=== PATIENT | male | born 1945 | race Caucasian/White ===

== ENCOUNTER → 2017-01-05 | Outpatient (CLI) | payer MEDICARE, OTHER ==
[2017-01-05 19:06] LABS: Basophils % (A) 0 %; CHCM 33.3; Eosinophils # (A) 0.1 k/uL (0-0.7); Eosinophils % (A) 1 %; HCT 41.6 % (39.0-53.0); HDW 2.17; HGB 13.7 gm/dL (13.0-17.5); Luc % (Auto) 3; Lymphocytes # (A) 1.3 k/uL (1.0-4.8); Lymphocytes % (A) 17 %; MCH 33.7 pg (25.0-35.0); MCHC 32.9 g/dL (31.0-37.0); MCV 102.5 fL (80.0-100.0); Macrocytosis Slight; Mean Platelet Volume 7.2; Monocytes # (A) 0.5 k/uL (0-1.0); Monocytes % (A) 7 %; Neutrophils # (A) 5.8 k/uL (1.3-7.7); Neutrophils % (A) 73 %; Potassium 4.4 mmol/L (3.5-5.1); RBC 4.06 m/uL (4.30-5.90); RDW 12.8 % (11.5-15.5); WBC 7.9 k/uL (3.8-10.6)
[2017-01-05 19:50] LABS: Partial Thromboplastin Time 22.5 sec (22.0-30.0); Prothrombin Time 10.4 sec (9.0-12.0)
== END | disposition home or self-care (01) ==
LOC: MMGSC 11:43
PROVIDERS: ATTEND Family Medicine
DX: Z01.812 Encounter for preprocedural laboratory examination (principal)
CPT/HCPCS: 36415; 80051; 85025; 85610; 85730

== ENCOUNTER 2017-01-28 06:23 | Inpatient (IN) | payer MEDICARE, OTHER ==
[2017-01-26 09:02] VITALS: BMI 25.9
--- NOTE | 2017-01-27 10:00 | HP ---
CHIEF COMPLAINT: Left shoulder pain and weakness. HISTORY OF PRESENT ILLNESS: The patient is a 71-year-old right-hand dominant retired gentleman who presents with progressive left shoulder pain and weakness for the past several years. He underwent attempted rotator cuff repair in December 2015. He notes worsening limitation of strength and motion. PAST MEDICAL HISTORY: Significant for gout, hypertension, heart disease, hypercholesterolemia. PAST SURGICAL HISTORY: Significant for right ankle surgery, carpal tunnel release, left knee surgery, bilateral rotator cuff repair, left elbow surgery, cervical fusion and coronary artery bypass grafting. CURRENT MEDICATIONS: 1. Allopurinol. 2. Atorvastatin. 3. Gabapentin. 4. Hydrochlorothiazide. 5. Lisinopril. 6. Metoprolol. 7. Plavix. He notes allergies to LEVAQUIN, NEOMYCIN, and NORCO. FAMILY HISTORY: Significant for heart disease. SOCIAL HISTORY: Significant for social alcohol use in addition to previous tobacco use. Sixteen-point review of systems otherwise reviewed and is noncontributory. On examination, the patient is approximately 5 feet 4 inches, 152 pounds of mesomorphic habitus. HEENT exam is nonfocal. Neck is supple. On examination of his left shoulder, he does have some anterior deltoid atrophy; however, no warmth or erythema. He is tender about the subacromial space. He has moderate subacromial crepitus. Active range of motion. Forward elevation 150 degrees. External rotation with arm to side 50 degrees, internal rotation to T12. Passively, I am able to forward elevate him to 165 degrees. Motor strength is 4 minus out of 5 for external rotation. With arm to side, 3 over 5 for abduction. He does fire the deltoid. Jung, Neer and speed test are positive. His distal neurovascular exam otherwise appears to be intact in the left upper extremity. X-rays to include AP, axillary and outlet views show severe glenohumeral joint osteoarthrosis with diminished humeral head to acromial distance. IMPRESSION: Left shoulder rotator cuff arthropathy/severe glenohumeral joint osteoarthrosis. RECOMMENDATIONS: I talked to the patient at length regarding his treatment options. At this point, he opts to proceed with surgery. We will plan to proceed with left total reverse total shoulder arthroplasty. Risks and benefits were discussed at length in layman's terms. He underwent preoperative medical evaluation by Dr. 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 KAROL
[~2017-01-28 06:23] MED LIST: ACETAMINOPHEN TAB 500 MG TAB PO ONE; DEXAMETHASONE SOD PHOSPHATE 10 MG/ML 1 ML VIAL IV ONE; HYDROmorphone 1 MG/ML 1 ML SYRINGE IVP PRN; LIDOCAINE 1% 20 ML VIAL (10MG/ML) FOR IV START INTRADERMA PRN; MELOXICAM 7.5 MG TAB PO ONE; MIDAZOLAM 2 MG/2 ML VIAL IV PRN; ONDANSETRON 4 MG/2 ML VIAL IVP ONE; SCOPOLAMINE 1.5MG/72HR PATCH TRANSDERM ONE; TRANEXAMIC ACID 1,000 MG in SODIUM CHLORIDE 0.9% 100 ML IVPB ONE; ceFAZolin 2 GM in SODIUM CHLORIDE 0.9% 100 ML IVPB ONE
[2017-01-28] MEDS: LACTATED RINGERS 1,000 ML IV SCH (06:46)
[2017-01-28] MEDS ORDERED: PHENYLEPHRINE-0.9% NACL SYG 1 MG/10 ML SYRINGE ONE (07:28)
[2017-01-28] MEDS ORDERED: GLYCOPYRROLATE 0.2 MG/ML 2 ML VIAL ONE (07:28)
[2017-01-28] MEDS ORDERED: TRANEXAMIC ACID 1,000 MG/10 ML VIAL ONE (07:28)
[2017-01-28] MEDS ORDERED: fentaNYL (PF) 50 MCG/ML 2 ML AMP ONE (07:28)
[2017-01-28] MEDS ORDERED: NEOSTIGMINE 1 MG/ML 10 ML VIAL ONE (07:28)
[2017-01-28] MEDS ORDERED: LIDOCAINE 1% INJ 10MG/ML (20 ML MDV) ONE (07:28)
[2017-01-28] MEDS ORDERED: SODIUM CHLORIDE 0.9% 100 ML BAG ONE (07:28)
[2017-01-28] MEDS ORDERED: ePHEDrine 50 MG/ML 1 ML AMP ONE (07:28)
[2017-01-28] MEDS ORDERED: MIDAZOLAM 2 MG/2 ML VIAL ONE (07:28)
[2017-01-28] MEDS ORDERED: SUCCINYLCHOLINE CHLORIDE 100 MG/5 ML SYR IV ONE (07:28)
[2017-01-28] MEDS ORDERED: PROPOFOL 10 MG/ML 20 ML VIAL IV ONE (07:28)
[2017-01-28] MEDS ORDERED: ROCURONIUM BROMIDE 10 MG/ML 10 ML VIAL IV ONE (07:28)
[2017-01-28] MEDS ORDERED: ceFAZolin 3,000 MG in SODIUM CHLORIDE 0.9% IRRIGATIO 3,000 ML IRRIGATION ONE (07:28)
[2017-01-28] MEDS ORDERED: ONDANSETRON 4 MG/2 ML VIAL IVP PRN (09:35)
[2017-01-28] MEDS ORDERED: SENNOSIDES-DOCUSATE SODIUM 1 EACH TAB PO PRN (09:35)
[2017-01-28] MEDS ORDERED: ACETAMINOPHEN TAB 325 MG TAB PO PRN (09:43)
[2017-01-28] MEDS ORDERED: IV FLUID CONTINUATION 1,000 ML IV ONE (09:55)
--- NOTE | 2017-01-28 10:10 | XR ---
EXAMINATION TYPE: XR shoulder complete LT , ONE VIEW DATE OF EXAM ORDERED: 01/28/2017 HISTORY: post op evaluation. COMPARISON: None. FINDINGS: A left shoulder arthroplasty has been performed. Prosthetic elements appear in good positi on. IMPRESSION: STATUS POST LEFT SHOULDER ARTHROPLASTY.
[2017-01-28] MEDS ORDERED: HYDROcodone/APAP 5-325MG 1 EACH TAB PO PRN (13:57)
[2017-01-28] MEDS: traMADol 50 MG TAB PO SCH ×3 (14:24→23:16)
[2017-01-28] MEDS: ceFAZolin 2 GM in SODIUM CHLORIDE 0.9% 100 ML IVPB SCH (17:18)
[2017-01-28] MEDS ORDERED: ENOXAPARIN 40 MG/0.4 ML SYRINGE SQ ONE (18:00)
[2017-01-28] MEDS: HYDROcodone/APAP 5-325MG 1 EACH TAB PO PRN (19:58)
[2017-01-28] MEDS: METOPROLOL TARTRATE 25 MG TAB PO SCH (20:09)
[2017-01-28] MEDS: GABAPENTIN 300 MG CAP PO SCH (20:10)
[2017-01-28] MEDS: LISINOPRIL 20 MG TAB PO SCH (20:10)
--- NOTE | 2017-01-28 20:51 | P.CONS ---
History of Present Illness - Reason for Consult Consult date: 01/28/17 Medical management Requesting physician: Michael Godwin - Chief Complaint Left rotator shoulder arthroplasty - History of Present Illness This is a pleasant 71-year-old gentleman patient of Dr. Jacquelin Pimentel, he has underlying history of CAD previous CVA BPH obstructive sleep apnea hypertension hyperlipidemia admitted under service of Dr. Joaquin for left rotator cuff arthroplasty performed on 01/28/2017, patient was seen postoperatively without any complaints of chest pain shortness of breath difficulty breathing, vital signs are stable, Review of Systems Constitutional: Reports as per HPI, Denies anorexia, Denies chills, Denies chronic headaches, Denies chronic pain, Denies daytime sleepiness, Denies fatigue, Denies fever, Denies lethargy, Denies malaise, Denies night sweats, Denies poor appetite, Denies sweats, Denies weakness, Denies weight gain, Denies weight loss Ears, nose, mouth and throat: Reports as per HPI, Denies ant. neck pain, Denies bleeding gums, Denies dental pain, Denies dysphagia, Denies epistaxis, Denies headache, Denies hoarseness, Denies mouth pain, Denies nasal congestion, Denies nasal discharge, Denies neck fullness/pressure, Denies neck lump, Denies nose pain, Denies odynophagia, Denies post-nasal drip, Denies sinus pain, Denies sinus pressure, Denies swelling in mouth, Denies swelling in throat, Denies sore throat, Denies vertigo, Denies voice changes Cardiovascular: Reports as per HPI, Denies chest pain, Denies claudication, Denies decreased exercise tolerance, Denies dyspnea on exertion, Denies edema, Denies high blood pressure, Denies irregular heart beat, Denies leg edema, Denies lightheadedness, Denies orthopnea, Denies palpitations, Denies paroxysmal nocturnal dyspnea, Denies phlebitis, Denies rapid heart beat, Denies shortness of breath, Denies syncope Respiratory: Reports as per HPI, Denies congestion, Denies cough, Denies cough with sputum, Denies dyspnea, Denies excessive sputum, Denies hemoptysis, Denies home oxygen, Denies pain, Denies pain on inspiration, Denies pleurisy, Denies respiratory infections, Denies sleep apnea, Denies snoring, Denies wheezing Gastrointestinal: Reports as per HPI, Denies abdominal pain, Denies belching, Denies bloating, Denies BRBPR, Denies change in bowel habits, Denies coffee ground emesis, Denies constipation, Denies diarrhea, Denies dyspepsia, Denies early satiety, Denies excessive gas, Denies heartburn, Denies hematemesis, Denies hematochezia, Denies indigestion, Denies jaundice, Denies lactose intolerance, Denies loss of appetite, Denies melena, Denies nausea, Denies vomiting Genitourinary: Reports as per HPI Musculoskeletal: Reports as per HPI Integumentary: Reports as per HPI Neurological: Reports as per HPI, Denies aphasia, Denies ataxia, Denies balance difficulties, Denies burning pain, Denies change in mentation, Denies change in smell/taste, Denies change in speech, Denies confusion, Denies convulsions, Denies double vision, Denies gait dysfunction, Denies head injury, Denies headaches, Denies hearing difficulties, Denies lack of coordination, Denies loss of vision, Denies memory loss, Denies migraines, Denies motor disturbance, Denies numbness, Denies paralysis, Denies paresthesias, Denies seizures, Denies sensory deficit, Denies spasticity, Denies syncope, Denies tic, Denies tingling , Denies transient paralysis, Denies tremors, Denies vertigo, Denies weakness, Denies visual changes Psychiatric: Reports as per HPI Endocrine: Reports as per HPI Hematologic/Lymphatic: Reports as per HPI Allergic/Immunologic: Reports as per HPI Past Medical History Past Medical History: Coronary Artery Disease (CAD), Cancer, COPD, CVA/TIA, Hearing Disorder / Deafness, Hyperlipidemia, Hypertension, Neurologic Disorder, Osteoarthritis (OA), Prostate Disorder, Sleep Apnea/CPAP/BIPAP Additional Past Medical History / Comment(s): Skin cancer- hand, C PAP MACHINE History of Any Multi-Drug Resistant Organisms: None Reported Past Surgical History: Back Surgery, Coronary Bypass/CABG, Heart Catheterization , Hernia Repair, Joint Replacement, Orthopedic Surgery Additional Past Surgical History / Comment(s): Bilat. cataract, cervical fusion , R total ankle, L & R rotator cuff, Bilat. carpal tunnel, RIGHT AND LEFT ELBOW , LESION RIGHT HAND, RIGHT KNEE ARTHROSCOPIC, Left total shoulder reversal Past Anesthesia/Blood Transfusion Reactions: No Reported Reaction Past Psychological History: Depression Additional Psychological History / Comment(s): Hx. of depression 2 yrs. ago. Smoking Status: Former smoker - Past Family History Mother Family Medical History: No Reported History Brother(s) Family Medical History: Cancer Additional Family Medical History / Comment(s): Unknown Sister(s) Family Medical History: Cancer Additional Family Medical History / Comment(s): Unknown Medications and Allergies Home Medications Medication Instructions Recorded Confirmed Type Atorvastatin [Lipitor] 20 mg PO HS 01/19/16 01/28/17 History Clopidogrel [Plavix] 75 mg PO DAILY 01/19/16 01/28/17 History Cyclobenzaprine [Flexeril] 10 mg PO HS 01/19/16 01/28/17 History Gabapentin [Neurontin] 300 mg PO BID 01/19/16 01/28/17 History Hydrochlorothiazide 25 mg PO DAILY 01/19/16 01/28/17 History Lisinopril [Prinivil] 20 mg PO HS 01/19/16 01/28/17 History Metoprolol Tartrate [Lopressor] 25 mg PO BID 01/19/16 01/28/17 History Multivitamin [Men's Multi-Vitamin] 1 tab PO DAILY 01/19/16 01/28/17 History Allopurinol [Zyloprim] 100 mg PO DAILY 01/20/17 01/28/17 History Allergies Allergy/AdvReac Type Severity Reaction Status Date / Time hydrocodone bitartrate Allergy Rash/Hives Verified 01/26/17 08:17 [From [place]] indomethacin Allergy CHANGE IN Verified 01/26/17 08:17 KIDNEY FUNCTION TEST levofloxacin [From Levaquin] Allergy PROBLEM Verified 01/26/17 08:17 WITH TENDON neomycin Allergy Rash/Hives Verified 01/26/17 08:17 Opioids - Morphine Analogues Allergy Rash/Hives Verified 01/26/17 08:17 Physical Exam Vitals: Vital Signs Temp Pulse Resp BP Pulse Ox 01/28/17 17:33 103 H 18 120/67 95 01/28/17 13:00 82 98/70 98 01/28/17 12:45 73 109/54 98 01/28/17 12:30 80 111/70 98 01/28/17 12:15 60 98/47 98 01/28/17 12:00 47 L 96/45 98 01/28/17 11:45 63 114/57 98 01/28/17 11:30 57 L 106/51 98 01/28/17 11:15 97.4 F L 56 L 16 102/40 95 01/28/17 10:50 54 L 16 107/55 95 01/28/17 10:35 53 L 16 101/51 96 01/28/17 10:20 54 L 16 124/58 97 01/28/17 09:50 96.8 F L 74 14 135/63 95 01/28/17 06:32 98.1 F 61 16 145/68 96 Intake and Output 01/28/17 01/28/17 01/28/17 06:59 14:59 22:59 Intake Total 200 1122 Output Total 400 Balance 200 722 Intake: IV 200 901 Intake, IV Titration 221 Amount Lactated Ringers 1,000 ml 221 @ 40 mls/hr IV .Q24H [facility] Rx#:[id number] Output: Urine 200 Estimated Blood Loss 200 Other: Voiding Method Indwelling Catheter Weight 70.76 kg Patient Weight 01/29/17 06:59 Weight 70.76 kg - Constitutional General appearance: average body habitus, cooperative, no acute distress - EENT Eyes: anicteric sclerae, EOMI, PERRLA, dentition normal, normal appearance ENT: NA/AT, normal oropharynx - Neck Neck: no lymphadenopathy, normal ROM, no other, no rigidity, no stridor, no thyromegaly - Respiratory Respiratory: bilateral: CTA, negative: diminished, dullness, rales - Cardiovascular Rhythm: regular Heart sounds: normal: S1, S2 Abnormal Heart Sounds: no systolic murmur, no diastolic murmur, no rub, no S3 Gallop, no S4 Gallop, no click, no other - Gastrointestinal General gastrointestinal: soft - Neurologic Neurologic: CNII-XII intact - Musculoskeletal Musculoskeletal: gait normal, strength equal bilaterally - Psychiatric Psychiatric: A&O x's 3, appropriate affect, intact judgment & insight Assessment and Plan Plan: 1. left total reversed shoulder arthroplasty was performed performed 01/28/2017 , patient is medically stable at this point, neurovascular examination is intact , patient would continue on incentive spirometry, opioids for pain control, patient is to receive muscle relaxants as well and DVT prophylaxis, patient patient can't have aspirin 81 mg twice a day while on Plavix 2. Known history of CAD patient currently is on Plavix, metoprolol and Zestril as well as Lipitor, Hytrin and Dyazide can be instituted once vitals have been stabilized as well as adequate hydration perceived 3.. History of gout currently asymptomatic on maintenance Zyloprim 4.. History of neuropathy on gabapentin 200 mg twice a day 5. COPD without any exacerbation patient may have albuterol on a when necessary basis 6. obstructive sleep apnea has CPAP machine 7. BPH without any lower tract symptomatology Thank you Dr. Godwin in allowing us to participate in the care of your patient. Going to follow him with you during this current hospitalization with recommendations to his care based on his clinical progress
[2017-01-28] MEDS ORDERED: ATORVASTATIN 20 MG TAB PO SCH (21:00)
[2017-01-28] MEDS ORDERED: CYCLOBENZAPRINE 10 MG TAB PO SCH (21:00)
[2017-01-28] MEDS: ALLOPURINOL 100 MG TAB PO SCH (22:28)
[2017-01-29] MEDS: ceFAZolin 2 GM in SODIUM CHLORIDE 0.9% 100 ML IVPB SCH (00:09)
[2017-01-29 07:11] LABS: Basophils % (A) 0 %; CH 33.3; CHCM 33.1; Eosinophils % (A) 1 %; HDW 2.14; HGB 12.2 gm/dL (13.0-17.5); Luc # (Auto) 0.15; Luc % (Auto) 2; Lymphocytes # (A) 1.3 k/uL (1.0-4.8); Lymphocytes % (A) 20 %; MCH 34.2 pg (25.0-35.0); MCHC 33.8 g/dL (31.0-37.0); MCV 101.1 fL (80.0-100.0); Mean Platelet Volume 6.5; Monocytes # (A) 0.5 k/uL (0-1.0); Monocytes % (A) 7 %; Neutrophils # (A) 4.5 k/uL (1.3-7.7); Neutrophils % (A) 70 %; RBC 3.56 m/uL (4.30-5.90); RDW 12.8 % (11.5-15.5); WBC 6.5 k/uL (3.8-10.6); WBC (Perox) 6.68
[2017-01-29] MEDS: LACTATED RINGERS 1,000 ML IV SCH (07:37)
[2017-01-29] MEDS: traMADol 50 MG TAB PO SCH (07:39)
[2017-01-29] MEDS: HYDROcodone/APAP 5-325MG 1 EACH TAB PO PRN (07:39)
[2017-01-29] MEDS: ALLOPURINOL 100 MG TAB PO SCH (07:44)
[2017-01-29] MEDS: GABAPENTIN 300 MG CAP PO SCH (07:44)
[2017-01-29 07:51] VITALS: RESP 16
[2017-01-29] MEDS: LISINOPRIL 20 MG TAB PO SCH (07:51)
[2017-01-29] MEDS: METOPROLOL TARTRATE 25 MG TAB PO SCH (07:52)
[2017-01-29 08:03] VITALS: BP 146/67; PULSE 74; TEMP 98.6
[2017-01-29] MEDS ORDERED: ALLOPURINOL 100 MG TAB PO SCH (09:00)
[2017-01-29] MEDS ORDERED: ASPIRIN 81 MG CHEW PO SCH (09:00)
[2017-01-29] MEDS ORDERED: HYDROCHLOROTHIAZIDE 25 MG TAB PO SCH (09:00)
[2017-01-29] MEDS ORDERED: CLOPIDOGREL 75 MG TAB PO SCH (09:00)
--- NOTE | 2017-01-29 10:51 | P.PN ---
Subjective Principal diagnosis: status post reverse left total shoulder arthroplasty Patient is seen today resting in his hospital bed, this was present at bedside. Patient doing very well at this point. His pain is well-controlled. He denies any chest pain, lightheadedness, shortness of breath, fever chills. Objective - Vital Signs Vital signs: Vital Signs Temp 98.6 F 01/29/17 08:02 Pulse 74 01/29/17 08:02 Resp 16 01/29/17 08:02 BP 146/67 01/29/17 08:02 Pulse Ox 94 L 01/29/17 08:02 Intake & Output 01/28/17 01/29/17 01/29/17 18:59 06:59 18:59 Intake Total 1122 340 Output Total 400 1400 300 Balance 722 -1060 -300 Weight 70.76 kg 70.76 kg Intake: IV 901 240 Lactated Ringers 1,000 ml 240 @ 40 mls/hr IV .Q24H [facility] Rx#:[id number] Intake, IV Titration 221 100 Amount Lactated Ringers 1,000 ml 221 @ 40 mls/hr IV .Q24H [facility] Rx#:[id number] ceFAZolin 2 gm In Sodium 100 Chloride 0.9% 100 ml @ 100 mls/hr IVPB Q8HR [facility] Rx#:[id number] Output: Urine 200 1400 300 Uretheral ([place]) 300 Estimated Blood Loss 200 Other: Voiding Method Indwelling Catheter Indwelling Catheter - Exam Left upper extremity: Initial postoperative bandage was removed, the incisions clean, dry and intact. Minimal soft tissue swelling present at this time surrounding the shoulder. Range of motion at the shoulder is limited, he is able to extend and flex along with pronate and supinate the wrist and forearm. He is able to wiggle all the fingers. His sensation to light touch throughout the left upper extremity is intact. His radial pulses 2+. - Labs CBC & Chem 7: 01/29/17 06:51 Labs: Abnormal Lab Results - Last 24 Hours (Table) 01/29/17 Range/Units 06:51 RBC 3.56 L (4.30-5.90) m/uL Hgb 12.2 L (13.0-17.5) gm/dL Hct 36.0 L (39.0-53.0) % MCV 101.1 H (80.0-100.0) fL Assessment and Plan Plan: Assessment: 1. Postop day #1 status post reverse left total shoulder arthroplasty Plan: 1. Pain control, patient will be discharged home on oral medication 2. Wound instructions were discussed 3. Utilize arm sling 4. GI and DVT prophylaxis, will resume his home dose of Plavix, we'll also take 81 mg aspirin twice a day for 2 weeks 5. Medical recommendations 6. Discharge planning: Patient will be discharged home today Time with Patient: Less than 30
--- NOTE | 2017-01-29 10:59 | P.DS ---
Providers Date of admission: 01/28/17 06:23 Expected date of discharge: 01/29/17 Attending physician: Michael Godwin Consults: 01/28/17 12:52 Consult Physician Stat Consulting Provider: Christelle Ruvalcaba Consult Reason/Comments: medical managment Do you want consulting provider notified?: Yes Primary care physician: [facility] Course: Date of admission: 01/28/2017 Date of discharge: 01/29/2017 Admission diagnosis: Status post left reverse total shoulder arthroplasty Discharge diagnosis: Same Attending physician: Dr. Godwin Surgical procedures: Reverse left total shoulder arthroplasty Brief history: Patient is a 71-year-old male with a history of progressive primary left shoulder osteoarthritis. At this point patient has failed conservative treatment measures and has opted to proceed with a elective left total shoulder arthroplasty. Hospital course: Details of patient's surgery can be found in operative report. Patient tolerated the procedure well and was subsequently transported to orthopedic floor. Patient's orthopeidc and medical care was provided daily. Patient had daily laboratory tests performed for evaluation of overall blood counts. Patient had daily physical therapy to include strengthening range of motion as well as education with walker ambulation. Patient was treated with aspirin and Plavix for their postoperative DVT prophylaxis during their inpatient stay. Patient was noted to have a relatively uneventful postoperative course. Patient reported satisfactory pain control with oral pain medications by postoperative day 0. Patient showed satisfactory progress with physical therapy. Patient moved steadily through the program and had no difficulty meeting the goals by postoperative day 1. Given patient's otherwise satisfactory course and having met physical therapy goals, plan is to discharge patient home on postoperative day 1. Discharge condition/disposition: Patient will be discharged home in stable condition. Discharge medications: Instructions are given on resumption of patient's normal daily medications per primary care recommendation, in addition patient will be prescribed [place] 5 mg/325 mg, Colace 100 mg, aspirin 81 mg. Discharge instructions: 1. Wound care and infection precautions, keep incision dry and covered while showering, no lotions, creams, moisturizers. No soaking, tubs, pools, hottubs. Do not scrub over the incision. 2. Utilize pendular exercises, utilize arm sling 3. Ice and elevate when necessary. Do not exceed 20 minutes per hour with ice pack. 4. Utilize compression sleeve until seen at first follow up appointment. 5. Pain meds and anticoagulants per prescription. 6. Pain medication has potential to cause constipation. Increase oral fluid and fiber intake. Contact primary care provider if you have not had a bowel movement within 48 hours after discharge 7. No anti-inflammatory medication until discussed at first post operative visit, this including Motrin, Aleve, Mobic, Diclofenac. 8. Follow up in office at 2 weeks postop with Jim Arteaga PA-C 9. Follow up with your primary care doctor 7-10 days after discharge. 10. Contact [facility] with any questions, Procedures: Reverse left total shoulder arthroplasty Patient Condition at Discharge: Good Plan - Discharge Summary New Discharge Prescriptions: New Docusate [Colace] 100 mg PO DAILY #30 capsule Hydrocodone/Acetaminophen [[place] 5-325] 1 - 2 each PO Q6HR PRN #40 tab PRN Reason: Pain Aspirin [Adult Low Dose Aspirin EC] 81 mg PO BID #[address] tablet[address] Vika Hua Multivitamin [Men's Multi-Vitamin] 1 tab PO DAILY Clopidogrel [Plavix] 75 mg PO DAILY Metoprolol Tartrate [Lopressor] 25 mg PO BID Lisinopril [Prinivil] 20 mg PO HS Hydrochlorothiazide 25 mg PO DAILY Gabapentin [Neurontin] 300 mg PO BID Cyclobenzaprine [Flexeril] 10 mg PO HS Atorvastatin [Lipitor] 20 mg PO HS Allopurinol [Zyloprim] 100 mg PO DAILY Discharge Medication List Atorvastatin [Lipitor] 20 mg PO HS 01/19/16 [History] Clopidogrel [Plavix] 75 mg PO DAILY 01/19/16 [History] Cyclobenzaprine [Flexeril] 10 mg PO HS 01/19/16 [History] Gabapentin [Neurontin] 300 mg PO BID 01/19/16 [History] Hydrochlorothiazide 25 mg PO DAILY 01/19/16 [History] Lisinopril [Prinivil] 20 mg PO HS 01/19/16 [History] Metoprolol Tartrate [Lopressor] 25 mg PO BID 01/19/16 [History] Multivitamin [Men's Multi-Vitamin] 1 tab PO DAILY 01/19/16 [History] Allopurinol [Zyloprim] 100 mg PO DAILY 01/20/17 [History] Aspirin [Adult Low Dose Aspirin EC] 81 mg PO BID #30 tablet. 01/29/17 [Rx] Docusate [Colace] 100 mg PO DAILY #30 capsule 01/29/17 [Rx] Hydrocodone/Acetaminophen [[place] 5-325] 1 - 2 each PO Q6HR PRN #40 tab 01/29/17 [Rx] Follow up Appointment(s)/Referral(s): Michael Arteaga PAC [PHYSICIAN [employer] ROOM OPERATOR] - 2 Weeks Activity/Diet/Wound Care/Special Instructions: Orthopedic Discharge Instructions: 1. Wound care and infection precautions, keep incision dry and covered while showering, no lotions, creams, moisturizers. No soaking, pools, hot tubs. Do not scrub over incision. 2. Utilize pendular exercises, utilize arm sling 3. Ice and elevate when necessary. Do not exceed 20 minutes per hour with ice pack. 4. Utilize compression sleeve until seen at first follow up appointment. 5. Pain meds and anticoagulants per prescription. 6. Pain medication has potential to cause constipation. Increase oral fluid and fiber intake. Contact primary care provider if you have not had a bowel movement within 48 hours after discharge. 7. No anti-inflammatory medication until discussed at first post operative visit, this including Motrin, Aleve, Mobic, Diclofenac. 8. Follow up in office at 2 weeks postop with Jim Arteaga PA-C 9. Follow up with your primary care doctor 7-10 days after discharge. 10. Contact [facility] with any questions, . Discharge Disposition: HOME SELF-CARE
[2017-01-29] MEDS ORDERED: MULTIVITAMINS, THERA 1 EACH TAB PO SCH (12:00)
--- NOTE | 2017-01-29 12:34 | P.PN ---
Subjective Principal diagnosis: This is a pleasant 71-year-old gentleman patient of Dr. Jacquelin Pimentel, he has underlying history of CAD previous CVA BPH obstructive sleep apnea hypertension hyperlipidemia admitted under service of Dr. Joaquin for left rotator cuff arthroplasty performed on 01/28/2017, patient was seen postoperatively without any complaints of chest pain shortness of breath difficulty breathing, vital signs are stable. 01/29: Today the patient was evaluated status post reversal of left total shoulder arthroplasty. Patient doing well reports pain is well controlled. He denies any shortness of breath or chest pain. Will continue to monitor for any postop complications Objective - Vital Signs Vital signs: Vital Signs Temp 98.6 F 01/29/17 08:02 Pulse 74 01/29/17 08:02 Resp 16 01/29/17 08:02 BP 146/67 01/29/17 08:02 Pulse Ox 94 L 01/29/17 08:02 Intake & Output 01/28/17 01/29/17 01/29/17 18:59 06:59 18:59 Intake Total 1122 340 Output Total 400 1400 300 Balance 722 -1060 -300 Weight 70.76 kg 70.76 kg Intake: IV 901 240 Lactated Ringers 1,000 ml 240 @ 40 mls/hr IV .Q24H [facility] Rx#:[id number] Intake, IV Titration 221 100 Amount Lactated Ringers 1,000 ml 221 @ 40 mls/hr IV .Q24H [facility] Rx#:[id number] ceFAZolin 2 gm In Sodium 100 Chloride 0.9% 100 ml @ 100 mls/hr IVPB Q8HR [facility] Rx#:[id number] Output: Urine 200 1400 300 Uretheral ([place]) 300 Estimated Blood Loss 200 Other: Voiding Method Indwelling Catheter Indwelling Catheter Indwelling Catheter - Exam - Constitutional General appearance: average body habitus, cooperative, no acute distress - EENT Eyes: anicteric sclerae, EOMI, PERRLA, dentition normal, normal appearance ENT: NA/AT, normal oropharynx - Neck Neck: no lymphadenopathy, normal ROM, no other, no rigidity, no stridor, no thyromegaly - Respiratory Respiratory: bilateral: CTA, negative: diminished, dullness, rales - Cardiovascular Rhythm: regular Heart sounds: normal: S1, S2 Abnormal Heart Sounds: no systolic murmur, no diastolic murmur, no rub, no S3 Gallop, no S4 Gallop, no click, no other - Gastrointestinal General gastrointestinal: soft - Neurologic Neurologic: CNII-XII intact - Musculoskeletal Musculoskeletal: gait normal, strength equal bilaterally - Psychiatric Psychiatric: A&O x's 3, appropriate affect, intact judgment & insight - Labs CBC & Chem 7: 01/29/17 06:51 Labs: Abnormal Lab Results - Last 24 Hours (Table) 01/29/17 Range/Units 06:51 RBC 3.56 L (4.30-5.90) m/uL Hgb 12.2 L (13.0-17.5) gm/dL Hct 36.0 L (39.0-53.0) % MCV 101.1 H (80.0-100.0) fL Assessment and Plan Plan: Plan: 1. left total reversed shoulder arthroplasty was performed performed 01/28/2017 , patient is medically stable at this point, neurovascular examination is intact , patient would continue on incentive spirometry, opioids for pain control, patient is to receive muscle relaxants as well and DVT prophylaxis, patient patient can't have aspirin 81 mg twice a day while on Plavix 2. Known history of CAD patient currently is on Plavix, metoprolol and Zestril as well as Lipitor, Hytrin and Dyazide can be instituted once vitals have been stabilized as well as adequate hydration perceived 3.. History of gout currently asymptomatic on maintenance Zyloprim 4.. History of neuropathy on gabapentin 200 mg twice a day 5. COPD without any exacerbation patient may have albuterol on a when necessary basis 6. obstructive sleep apnea has CPAP machine 7. BPH without any lower tract symptoms The above impression and plan of care have been discussed and directed by signing physician. Kathe Rogers nurse practitioner acting as scribe for signing physician.
--- NOTE | 2017-02-07 11:57 | OP ---
DATE OF PROCEDURE: 01/28/2017 SURGEON: Michael Godwin MD AUDIO/VISUAL OPERATOR: Michael Arteaga PREOPERATIVE DIAGNOSIS: Severe left glenohumeral joint osteoarthrosis/rotator cuff arthropathy. POSTOPERATIVE DIAGNOSIS: Severe left glenohumeral joint osteoarthrosis/rotator cuff arthropathy. PROCEDURE: Left reversed total shoulder arthroplasty. ANESTHESIA: General. PREP: DuraPrep. INDICATIONS FOR PROCEDURE: The patient is a 71-year-old male who presents with progressive left shoulder pain, weakness, and limited motion secondary to rotator cuff arthropathy despite conservative measures. He had previously undergone attempted rotator cuff repair. A discussion of the risks and benefits of operative intervention versus continued conservative measures was made with the patient. He opts to proceed. Operative risks to include infection, neurovascular injury, development of blood clots, possible dislocation, possible fracture and possible need for subsequent procedures were discussed. Informed consent was obtained. PROCEDURE: The patient was brought to the operating room and after induction of general anesthesia, he was placed into a beach chair position. The bone prominences were appropriately padded. The left upper extremity was prepped and draped in a normal fashion. A deltopectoral incision was then made just lateral to the coracoid process extending approximately 12 cm. The skin and subcutaneous tissues were divided sharply. Electrocautery was used for hemostasis. The deltopectoral interval was identified and cephalic vein was gently retracted laterally with deltoid. Subdeltoid adhesions were bluntly dissected. A portion of the upper pectoralis was released to facility exposure. A self-retaining retractor was placed. The clavipectoral fascia was opened and the conjoined tendon gently retracted medially. The biceps was identified and released and allowed to retract distally. The rotator cuff was torn and retracted past the level of the glenoid. A portion of the subscapularis tendon was intact and that was released from a lesser tuberosity with electrocautery intact. The head was then gently dislocated. A canal finder was used to find the humeral canal. Sequential canal reaming was performed by hand up to a size 10. There was good distal fit and chatter. The cutting guide was then placed. I planned on 10 degrees of retroversion. The humeral head cut was then made exiting at the level of a rotator cuff insertion. The head was then removed. The remaining inferior osteophytes were removed. Attention was then paid towards the glenoid. Appropriate retractors were placed. The labrum was released from the 6 o'clock to 12 o'clock position. Additional soft tissue releases were performed to gain full exposure. A guide pin was then placed into the inferior portion of the glenoid. The glenoid was then reamed down to a bleeding bony surface. Peripheral osteophytes were removed with a tile molder hand. The central peg hole was then drilled. The Glenosphere baseplate was then gently impacted. The inferior and superior screw holes were filled first with locking screw to the appropriate length. The anterior and posterior screws were then placed. Good purchase was obtained. A 38 mm Glenosphere was gently impacted. This was then tightened down. Attention was then paid towards preparing the proximal humerus. The appropriate broach was inserted in 10 degrees of retroversion and was fully seated. The size 1 epiphyseal reamer was utilized. The trial size 10 humeral stem with a size 1 epiphysis was then placed. A 38 mm plus 6 articular surface was placed. The shoulder was gently reduced. It was taken through range of motion. I felt there was adequate voodoo of soft tissue tension judging off the conjoined tendon tension. There was good stability and flexion and extension with internal external rotation. The shoulder was gently dislocated. The trial components were then removed. The final humeral stem was inserted again in 10 degrees of retroversion and it was seated. There was good rotational stability. The 38 mm plus 6 articular surface was placed and was gently impacted. The shoulder was gently reduced. Again, it was taken through range of motion and felt to be stable in flexion and extension with internal and external rotation. Again, there was good soft tissue tension judging off the conjoined tendon. Pulsatile lavage was utilized. I did repair the subscapularis with #2 Ethibond suture. The deltopectoral interval was closed with interrupted 2-0 Vicryl sutures. The subcutaneous tissues were reapproximated with interrupted 2-0 Vicryl sutures. The skin was reapproximated with 3-0 subcuticular Stratafix suture. Skin tape and adhesive was applied. A sterile dressing was applied in addition to a sling. The patient was then awoken from general anesthesia and transferred to the recovery room in good condition. Blood loss was estimated at 150 mL. No complications were incurred. Sponge and needle counts were correct at the end of the case. The implants used Depuy size 10 humeral stem, size 1 epiphysis, 38 mm plus 6 articular surface, 38 mm Glenosphere. This was a delta Xtend implant. [facility]
== END 2017-01-29 14:55 | disposition home or self-care (01) | DRG 483 ==
LOC: 2ORMAIN 06:23 → 5MS5E 09:50
PROVIDERS: ADMIT Orthopaedic Surgery; ATTEND Orthopaedic Surgery
PROC: 0RRK00Z Replacement of Left Shoulder Joint with Reverse Ball and Socket Synthetic Substitute, Open Approach (ICD-10-PCS; principal; 2017-01-28 08:00)
DX: M19.012 Primary osteoarthritis, left shoulder (principal); I11.9 Hypertensive heart disease without heart failure; J44.9 Chronic obstructive pulmonary disease, unspecified; F32.9 Major depressive disorder, single episode, unspecified; E78.5 Hyperlipidemia, unspecified; E78.00 Pure hypercholesterolemia, unspecified; G47.33 Obstructive sleep apnea (adult) (pediatric); H91.90 Unspecified hearing loss, unspecified ear; I25.10 Atherosclerotic heart disease of native coronary artery without angina pectoris; M10.9 Gout, unspecified; N40.0 Benign prostatic hyperplasia without lower urinary tract symptoms; Z79.02 Long term (current) use of antithrombotics/antiplatelets; Z79.899 Other long term (current) drug therapy; Z85.828 Personal history of other malignant neoplasm of skin; Z87.891 Personal history of nicotine dependence; Z88.1 Allergy status to other antibiotic agents; Z88.5 Allergy status to narcotic agent; Z95.1 Presence of aortocoronary bypass graft; Z98.1 Arthrodesis status
CPT/HCPCS: 85025; 88305; 88311

== ENCOUNTER → 2017-04-09 | Outpatient (CLI) | payer MEDICARE, OTHER ==
[2017-04-09 07:38] LABS: Basophils % (A) 1 %; CH 33.2; CHCM 32.7; Eosinophils # (A) 0.2 k/uL (0-0.7); Eosinophils % (A) 5 %; HCT 42.4 % (39.0-53.0); HDW 2.46; HGB 13.9 gm/dL (13.0-17.5); Luc # (Auto) 0.15; Luc % (Auto) 4; Lymphocytes # (A) 1.3 k/uL (1.0-4.8); Lymphocytes % (A) 33 %; MCH 33.2 pg (25.0-35.0); MCHC 32.7 g/dL (31.0-37.0); MCV 101.7 fL (80.0-100.0); Macrocytosis Slight; Mean Platelet Volume 6.5; Monocytes # (A) 0.4 k/uL (0-1.0); Monocytes % (A) 9 %; Neutrophils % (A) 49 %; RBC 4.17 m/uL (4.30-5.90); RDW 13.1 % (11.5-15.5); WBC (Perox) 3.63
[2017-04-09 07:49] LABS: Anion Gap 9 mmol/L; Blood Urea Nitrogen 24 mg/dL (9-20); Calcium 9.8 mg/dL (8.4-10.2); Carbon Dioxide 26 mmol/L (22-30); Chloride 101 mmol/L (98-107); Glucose 99 mg/dL (74-99); Non-African American GFR(MDRD) >60 (>60 ml/min/1.73 sqM); Potassium 4.9 mmol/L (3.5-5.1); Sodium 136 mmol/L (137-145)
== END | disposition home or self-care (01) ==
LOC: LABWHC1 07:10
PROVIDERS: ATTEND Urology
DX: Z01.812 Encounter for preprocedural laboratory examination (principal); E78.00 Pure hypercholesterolemia, unspecified; N40.1 Benign prostatic hyperplasia with lower urinary tract symptoms
CPT/HCPCS: 36415; 80048; 85025

== ENCOUNTER 2017-04-14 07:20 | Day surgery (SDC) | payer MEDICARE, OTHER ==
[2017-04-08 14:47] VITALS: BMI 25.7
[~2017-04-14 07:20] MED LIST changes: -ACETAMINOPHEN TAB 500 MG TAB PO ONE; +LACTATED RINGERS 1,000 ML IV SCH; -LIDOCAINE 1% 20 ML VIAL (10MG/ML) FOR IV START INTRADERMA PRN; -MELOXICAM 7.5 MG TAB PO ONE; -MIDAZOLAM 2 MG/2 ML VIAL IV PRN; -SCOPOLAMINE 1.5MG/72HR PATCH TRANSDERM ONE; -TRANEXAMIC ACID 1,000 MG in SODIUM CHLORIDE 0.9% 100 ML IVPB ONE
[2017-04-14] MEDS ORDERED: LIDOCAINE 1% 20 ML VIAL (10MG/ML) FOR IV START INTRADERMA ONE (07:56)
[2017-04-14] MEDS ORDERED: MIDAZOLAM 2 MG/2 ML VIAL ONE (09:58)
[2017-04-14] MEDS ORDERED: PROPOFOL 10 MG/ML 20 ML VIAL IV ONE (09:58)
[2017-04-14] MEDS ORDERED: PHENYLEPHRINE-0.9% NACL SYG 1 MG/10 ML SYRINGE ONE (09:58)
[2017-04-14] MEDS ORDERED: fentaNYL (PF) 50 MCG/ML 2 ML AMP ONE (09:58)
[2017-04-14] MEDS ORDERED: ePHEDrine SULFATE/0.9% NACL/PF 50 MG/5 ML SYRINGE IV ONE (09:58)
--- NOTE | 2017-04-14 11:46 | P.OP ---
Date of Procedure: 04/14/17 Preoperative Diagnosis: BPH with Obstruction Postoperative Diagnosis: Same Procedure(s) Performed: Cystoscopy, Bipolar Transurethral Resection of Prostate (TURP) Anesthesia: spinal Surgeon: Bennie Crowder Estimated Blood Loss (ml): 50 IV fluids (ml): 800 Pathology: other (prostate chips) Condition: stable Disposition: PACU Indications for Procedure: He is a 71-year-old male with an elevated PSA level. He has a brother with prostate cancer. He underwent a prostate ultrasound in November 2009, showing a prostate volume of 39 cc. Biopsies were negative. His PSA level increased to 15.0 in 2016, but has returned to baseline. He has become increasingly symptomatic in terms of BPH, and has taken both tamsulosin and Uroxatral without success. He does not feel that his voiding symptoms are adequately controlled. Alternative treatment options were reviewed, and he has elected to undergo a bipolar TURP. Operative Findings: Complete occlusion, bilobar BPH. Description of Procedure: The patient was taken in the operating room and placed in the dorsolithotomy position after being given a spinal anesthetic, The external genitalia was prepped and draped sterilely. The 25-[place] ACMI resectoscope sheath was introduced into the bladder. The bladder was inspected. Both ureteral orifices were of normal anatomic location and configuration, and clear urine effluxed from both. No tumors or foreign bodies were seen. Examination of the prostate revealed complete obstruction with a bilobar configuration. Using the bipolar cutting loop, the lateral lobes were resected down to the surgical capsule. The floor of the prostate was then resected, proximal to the verumontanum. Lastly, any remaining anterior tissue was resected, though there was little anterior tissue. The remaining apical tissue was then carefully resected. The resection was carried down to the surgical capsule in all 4 quadrants. The prostatic fossa was then carefully examined, and any areas of bleeding were controlled with electrocautery. Excellent hemostasis was attained. The resectoscope was withdrawn into the bulbous urethra. The external urinary sphincter remained intact. The prostatic fossa was open. The Attendify evacuator was used to remove all prostate chips from the bladder. These were saved and sent for pathologic examination. The resectoscope was removed, and a 20 [place] catheter was placed. The return was essentially clear. The patient tolerated the procedure well was taken to the recovery room in stable condition.
[2017-04-14 11:55] VITALS: TEMP 97
[2017-04-14 13:33] VITALS: BP 160/70; PULSE 62; RESP 16
== END 2017-04-14 15:00 | disposition home or self-care (01) ==
LOC: OR 07:20
PROVIDERS: ATTEND Urology
DX: R35.0 Frequency of micturition (principal); N52.9 Male erectile dysfunction, unspecified; R39.12 Poor urinary stream; Z80.42 Family history of malignant neoplasm of prostate; I10 Essential (primary) hypertension; E78.00 Pure hypercholesterolemia, unspecified; E78.5 Hyperlipidemia, unspecified; M10.9 Gout, unspecified; Z86.73 Personal history of transient ischemic attack (TIA), and cerebral infarction without residual deficits; Z95.1 Presence of aortocoronary bypass graft; M19.90 Unspecified osteoarthritis, unspecified site; Z79.899 Other long term (current) drug therapy; Z79.02 Long term (current) use of antithrombotics/antiplatelets; Z88.1 Allergy status to other antibiotic agents; Z88.5 Allergy status to narcotic agent
CPT/HCPCS: 93005; 88305; 52601; J2250; J1100; J0690; J2405; J3010; J2370; J2704

== ENCOUNTER → 2019-04-27 | Outpatient (CLI) | payer MEDICARE, OTHER ==
--- NOTE | 2019-04-27 09:05 | MR ---
EXAMINATION TYPE: MR brain wo con DATE OF EXAM: 04/27/2019 COMPARISON: NONE HISTORY: Imbalance TECHNIQUE: T1-weighted sagittal, T2, FLAIR, and diffusion axial, and T2 coronal coronal views of the brain are submitted. FINDINGS: There is no evidence of acute ischemia. Area of abnormal signal involving the superior margin the rig ht cerebellum suggestive previous ischemia. No midline shift or mass effect. There are numerous focal areas of abnormal signal seen scattered throughout the white matter bilatera lly in a nonspecific pattern but most typical remote microvascular ischemia.. Craniocervical junction maintained. Sella turcica has a normal appearance. No cerebellopontine angle mass. Changes of chronic sinusitis noted. IMPRESSION: 1. No acute intracranial process. 2. Degenerative and remote ischemic change as discussed above. This includes a focal area of abnormal signal involving the superior right cerebellum suggestive of remote ischemia.
== END | disposition home or self-care (01) ==
LOC: RADMRIMAIN 06:45
PROVIDERS: ATTEND Family Medicine
DX: G31.9 Degenerative disease of nervous system, unspecified (principal); R90.89 Other abnormal findings on diagnostic imaging of central nervous system; Z86.73 Personal history of transient ischemic attack (TIA), and cerebral infarction without residual deficits
CPT/HCPCS: 70551

== ENCOUNTER → 2021-06-26 | Outpatient (CLI) | payer MEDICARE, OTHER | END | disposition home or self-care (01) | LOC: LABWHC1 12:57 | PROVIDERS: ATTEND Family Medicine | DX: Z20.822 Contact with and (suspected) exposure to COVID-19 (principal); R07.0 Pain in throat; R09.81 Nasal congestion; R51.9 Headache, unspecified | CPT/HCPCS: U0003; C9803 ==

== ENCOUNTER → 2022-02-18 | Outpatient (CLI) | payer MEDICARE, OTHER ==
--- NOTE | 2022-02-18 15:43 | US ---
EXAMINATION TYPE: US venous doppler duplex LE RT DATE OF EXAM: 02/18/2022 12:41 PM COMPARISON: NONE CLINICAL HISTORY: 76-year-old male R22.41 SWELLING,MASS,LUMP RT LOWER LIMB. Edema. SIDE PERFORMED: Right TECHNIQUE: The lower extremity deep venous system is examined utilizing real time linear array sonog alice with graded compression, doppler sonography and color-flow sonography. FINDINGS: VESSELS IMAGED: Common Femoral Vein Deep Femoral Vein Greater Saphenous Vein * Femoral Vein Popliteal Vein Small Saphenous Vein * Proximal Calf Veins (* superficial vessels) Right Leg: Negative for DVT IMPRESSION: No evidence for DVT within the right lower extremity imaged from the groin to the upper calf.
== END | disposition home or self-care (01) ==
LOC: RADUSWWP 12:08
PROVIDERS: ATTEND Family Medicine
DX: R22.41 Localized swelling, mass and lump, right lower limb (principal)

== ENCOUNTER → 2022-10-15 | Outpatient (CLI) | payer MEDICARE, OTHER ==
[2022-10-15 18:48] LABS: HCT 36.8 % (39.6-50.0); HGB 11.8 g/dL (13.0-17.0); MCH 33.2 pg (27.0-32.0); MCHC 32.1 g/dL (32.0-37.0); MCV 103.7 fL (80.0-97.0); NRBC Per 100 WBC 0 /100 WBCS (0.0-0.0); Platelet Count 210 X 10*3/uL (140-440); RBC 3.55 X 10*6/uL (4.40-5.60); RDW 13.2 % (11.5-14.5); WBC 6.02 X 10*3/uL (4.50-10.00)
[2022-10-15 18:58] LABS: African American GFR (CKD) 76.2 (60.0-200.0); Albumin 4.5 g/dL (3.8-4.9); Albumin/Globulin Ratio 1.8 (1.60-3.17); BUN/Creat Ratio 20.82 Ratio (12.00-20.00); Blood Urea Nitrogen 22.9 mg/dL (9.0-27.0); Calcium 9.7 mg/dL (8.7-10.3); Globulin 2.5 g/dL (1.6-3.3); Non-African American GFR(CKD) 65.8 (60.0-200.0); Total Bilirubin 0.2 mg/dL (0.30-1.20)
== END | disposition home or self-care (01) ==
LOC: LABWHC1 13:47
PROVIDERS: ATTEND Nurse Practitioner Family
DX: I10 Essential (primary) hypertension (principal); R60.9 Edema, unspecified; R00.2 Palpitations
CPT/HCPCS: 36415; 80053; 83735; 84443; 85027

== ENCOUNTER → 2023-06-03 | Outpatient (CLI) | payer MEDICARE, OTHER ==
[2023-06-04 02:02] LABS: Basophils # (A) 0.04 X 10*3/uL (0.00-0.10); Basophils % (A) 0.6 %; Eosinophils # (A) 0.23 X 10*3/uL (0.04-0.35); Eosinophils % (A) 3.7 %; HCT 39.4 % (39.6-50.0); Lymphocytes # (A) 2.11 X 10*3/uL (0.90-5.00); MCH 30.1 pg (27.0-32.0); MCHC 30.5 g/dL (32.0-37.0); MCV 98.7 FL (80.0-97.0); Mean Platelet Volume 10.5 FL (9.5-12.2); Monocytes # (A) 0.74 X 10*3/uL (0.20-1.00); Monocytes % (A) 11.9 %; NRBC Per 100 WBC 0 X 10*3/uL (0.00-0.01); Neutrophils # (A) 3.08 X 10*3/uL (1.80-7.70); Neutrophils % (A) 49.6 %; Platelet Count 221 X 10*3/uL (140-440); RBC 3.99 X 10*6/uL (4.40-5.60); WBC 6.21 X 10*3/uL (4.50-10.00)
== END | disposition home or self-care (01) ==
LOC: LABWHC1 15:04
PROVIDERS: ATTEND Family Medicine
DX: D53.9 Nutritional anemia, unspecified (principal)
CPT/HCPCS: 36415; 82607; 82746; 85025

== ENCOUNTER 2023-06-13 09:36 | Emergency (ER) | payer MEDICARE, OTHER ==
[2023-06-13 10:03] VITALS: BP 174/100; PULSE 64; RESP 22; TEMP 97.7
[2023-06-13] MEDS ORDERED: KETOROLAC 15 MG/ML 1 ML VIAL IM STA (10:07)
--- NOTE | 2023-06-13 10:13 | ED ---
General Adult HPI - General Chief complaint: Extremity Problem,Nontraumatic Stated complaint: Pain in left elbow Time Seen by Provider: 06/13/23 09:47 Source: patient, RN notes reviewed Mode of arrival: ambulatory Limitations: no limitations - History of Present Illness Initial comments: Patient is a pleasant 77-year-old male presents emergency department with concerns with left elbow pain. Onset of symptoms was last day or 2. No fever. Patient does have history of similar symptoms at least 5 times previously associated with gout. Patient does usually take indomethacin for a few days. Patient does have an appointment with his doctor tomorrow. Pain increases with movement. No trauma. No fever. No redness. Area of involvement his left el bow. - Related Data Home Medications Medication Instructions Recorded Confirmed Atorvastatin [Lipitor] 20 mg PO HS 01/19/16 04/08/17 Clopidogrel [Plavix] 75 mg PO DAILY 01/19/16 04/08/17 Cyclobenzaprine [Flexeril] 10 mg PO HS 01/19/16 04/08/17 Gabapentin [Neurontin] 300 mg PO BID 01/19/16 04/08/17 Metoprolol Tartrate [Lopressor] 25 mg PO BID 01/19/16 04/08/17 Multivitamin [Men's Multi-Vitamin] 1 tab PO DAILY 01/19/16 04/08/17 hydroCHLOROthiazide 25 mg PO DAILY 01/19/16 04/08/17 lisinopriL [Prinivil] 20 mg PO HS 01/19/16 04/08/17 allopurinoL [Zyloprim] 100 mg PO DAILY 01/20/17 04/08/17 Previous Rx's Medication Instructions Recorded Acetaminophen with Codeine 1 tab PO Q4H #10 tab 04/14/17 [Tylenol w/codeine #3] Hydrocodone/Acetaminophen [Griffin 1 - 2 each PO Q4HR PRN #10 tab 04/14/17 5-325] Indomethacin [Indocin] 50 mg PO TID PRN #10 capsule 06/13/23 Allergies Allergy/AdvReac Type Severity Reaction Status Date / Time hydrocodone bitartrate Allergy Rash/Hives Verified 06/13/23 09:42 [From Griffin] indomethacin Allergy CHANGE IN Verified 06/13/23 09:42 KIDNEY FUNCTION TEST levofloxacin [From Levaquin] Allergy PROBLEM Verified 06/13/23 09:42 WITH TENDON neomycin Allergy Rash/Hives Verified 06/13/23 09:42 Opioids - Morphine Analogues Allergy Rash/Hives Verified 06/13/23 09:42 Review of Systems ROS Statement: Those systems with pertinent positive or pertinent negative responses have been documented in the HPI. ROS Other: All systems not noted in ROS Statement are negative. Constitutional: Denies: fever Eyes: Denies: eye pain ENT: Denies: ear pain Respiratory: Denies: cough, dyspnea Cardiovascular: Denies: chest pain Endocrine: Denies: fatigue Gastrointestinal: Denies: abdominal pain Musculoskeletal: Reports: as per HPI Skin: Denies: rash Past Medical History Past Medical History: Atrial Fibrillation, Coronary Artery Disease (CAD), Cancer, CVA/TIA, Hearing Disorder / Deafness, Hyperlipidemia, Hypertension, Musculoskeletal Disorder, Neurologic Disorder, Osteoarthritis (OA), Prostate Disorder, Sleep Apnea/CPAP/BIPAP Additional Past Medical History / Comment(s): Skin cancer- hand, enlarged prostate, joint disease, CVA in 2013, no weakness @ this time from his stroke. uses cpap at night History of Any Multi-Drug Resistant Organisms: None Reported Past Surgical History: Back Surgery, Coronary Bypass/CABG, Heart Catheterization, Hernia Repair, Joint Replacement, Orthopedic Surgery Additional Past Surgical History / Comment(s): Bilat. cataract, cervical fusion, R total ankle, L & R rotator cuff, Bilat. carpal tunnel, RIGHT AND LEFT ELBOW, LESION RIGHT HAND, RIGHT KNEE ARTHROSCOPIC, Left total shoulder reversal, COLONOSCOPY Past Anesthesia/Blood Transfusion Reactions: No Reported Reaction Past Psychological History: No Psychological Hx Reported Smoking Status: Never smoker Past Alcohol Use History: Occasional Past Drug Use History: None Reported - Past Family History Mother Family Medical History: No Reported History Brother(s) Family Medical History: Cancer Additional Family Medical History / Comment(s): Unknown Sister(s) Family Medical History: Cancer Additional Family Medical History / Comment(s): Unknown General Exam Limitations: no limitations General appearance: alert, in no apparent distress Head exam: Present: normocephalic Eye exam: Present: normal appearance Neck exam: Present: normal inspection Respiratory exam: Present: normal lung sounds bilaterally Cardiovascular Exam: Present: irregular rhythm Expanded Peripheral pulses: 2+: Radial (L) GI/Abdominal exam: Present: soft. Absent: tenderness Extremities exam: Present: other (Left elbow with minimal swelling and moderate tenderness. Limited range of motion secondary to discomfort. There is also minimal swelling left proximal thumb region which patient states also occurs with his gout.) Neurological exam: Present: alert Psychiatric exam: Present: normal affect, normal mood Skin exam: Present: normal color. Absent: erythema Course Vital Signs 06/13/23 09:40 Temperature 97.7 F Pulse Rate 64 Respiratory 22 Rate Blood Pressure 174/100 O2 Sat by Pulse 99 Oximetry Medical Decision Making - Medical Decision Making Was pt. sent in by a medical professional or institution (, PA, INVENTORY ASSOCIATE, urgent care, hospital, or prison...) When possible be specific @ -No Did you speak to anyone other than the patient for history (EMS, parent, family, police, friend...)? What history was obtained from this source @ -Son is present and helps confirm history. Did you review nursing and triage notes (agree or disagree)? Why? @ -I reviewed and agree with nursing and triage notes Were old charts reviewed (outside hosp., previous admission, EMS record, old EKG, old radiological studies, urgent care reports/EKG's, prison records)? Report findings @ -No old charts were reviewed Differential Diagnosis (chest pain, altered mental status, abdominal pain women, abdominal pain men, vaginal bleeding, weakness, fever, dyspnea, syncope, headache, dizziness, GI bleed, back pain, seizure, CVA, palpatations, mental health, musculoskeletal)? @ -Differential Musculoskeletal Muscular strain, contusion, ligament sprain, fracture, arthritis, septic arthritis, bursitis, cellulitis, muscle spasm, nerve compression, DVT, arterial occlusion, herpes zoster, electrolyte abnormality, tumor.... This is not meant to be in all inclusive list EKG interpreted by me (3pts min.). @ -As above X-rays interpreted by me (1pt min.). @ -None done CT interpreted by me (1pt min.). @ -None done U/S interpreted by me (1pt. min.). @ -None done What testing was considered but not performed or refused? (CT, X-rays, U/S, labs)? Why? @ -Consider labs and imaging however patient does have history of similar symptoms at least 5 times previously associated with gout with similar symptoms. Patient does not feel this is necessary. What meds were considered but not given or refused? Why? @ -None Did you discuss the management of the patient with other professionals (professionals i.e. , PA, INVENTORY ASSOCIATE, lab, RT, psych nurse, nephrology social worker, excellence manager, teacher, police booking officer, returned case inspector)? Give summary @ -No Was smoking cessation discussed for >3mins.? @ -No Was critical care preformed (if so, how long)? @ -No Were there social determinants of health that impacted care today? How? (Homelessness, low income, unemployed, alcoholism, drug addiction, transportation, low edu. Level, literacy, decrease access to med. care, intermediate, rehab)? @ -No Was there de-escalation of care discussed even if they declined (Discuss DNR or withdrawal of care, Hospice)? DNR status @ -No What co-morbidities impacted this encounter? (DM, HTN, Smoking, COPD, CAD, Cancer, CVA, ARF, Chemo, Hep., AIDS, mental health diagnosis, sleep apnea, morbid obesity)? @ -None Was patient admitted / discharged? Hospital course, mention meds given and route, prescriptions, significant lab abnormalities, going to OR and other pertinent info. @ -Patient will be provided anti-inflammatories and indomethacin as previously worked for him. Patient does have follow-up with his doctor tomorrow and agreeable to keep this. Patient will be discharged. Undiagnosed new problem with uncertain prognosis? @ -No Drug Therapy requiring intensive monitoring for toxicity (Heparin, Nitro, Insulin, Cardizem)? @ -No Were any procedures done? @ -No Diagnosis/symptom? @ -Arthralgia left elbow Acute, or Chronic, or Acute on Chronic? @ -Acute Uncomplicated (without systemic symptoms) or Complicated (systemic symptoms)? @ -default Side effects of treatment? @ -No Exacerbation, Progression, or Severe Exacerbation? @ -No Poses a threat to life or bodily function? How? (Chest pain, [place], PA, pneumonia, PE, COPD, DKA, ARF, appy, cholecystitis, CVA, Diverticulitis, Homicidal, Suicidal, threat to staff... and all critical care pts) @ -No Disposition Clinical Impression: Arthralgia of left elbow Disposition: HOME SELF-CARE Condition: Stable Instructions (If sedation given, give patient instructions): Arthralgia (ED), Gout (ED) Additional Instructions: Prescription sent to pharmacy. Please do follow-up with your doctor tomorrow as planned. Return for increased pain, redness, swelling, fever, worsening or change in symptoms or other concerns. Prescriptions: Indomethacin [Indocin] 50 mg PO TID PRN #10 capsule PRN Reason: Pain Is patient prescribed a controlled substance at d/c from ED?: No Referrals: Teresa Coronado MD [Primary Care Provider] - 1-2 days Time of Disposition: 10:11
== END 2023-06-13 10:26 | disposition home or self-care (01) ==
LOC: SUPCPDRO 09:36 → EC 09:36
DX: M25.522 Pain in left elbow (principal); E78.5 Hyperlipidemia, unspecified; G47.30 Sleep apnea, unspecified; I10 Essential (primary) hypertension; I25.10 Atherosclerotic heart disease of native coronary artery without angina pectoris; I48.91 Unspecified atrial fibrillation; M19.90 Unspecified osteoarthritis, unspecified site; Z79.02 Long term (current) use of antithrombotics/antiplatelets; Z79.899 Other long term (current) drug therapy; Z88.5 Allergy status to narcotic agent; Z88.8 Allergy status to other drugs, medicaments and biological substances; Z95.1 Presence of aortocoronary bypass graft
CPT/HCPCS: 99283; 96372; J1885

== ENCOUNTER → 2023-07-08 | Outpatient (CLI) | payer MEDICARE, OTHER ==
--- NOTE | 2023-07-08 12:24 | MR ---
EXAMINATION TYPE: MR brain and iac wo/w con DATE OF EXAM: 07/08/2023 COMPARISON: Ringing in the right ear with hearing loss HISTORY: Rt ear ringing, acoustic nerve disorder, tinnitus, hearing loss TECHNIQUE: Multiplanar, multisequence images of the brain and brainstem is performed without and with IV contras t, utilizing 7 mL intravenous Gadavist . FINDINGS: Diffusion weighted images demonstrate no evidence of a recent infarct or other diffusion ab normality. [id number] degenerative change with nonspecific signal seen in the white matter are most typical of remote microvascular disease. There is a stable-appearing area of encephalomalacia in volving the superior right cerebellar vermis. There is no evidence of cerebellopontine angle mass or acoustic schwannoma. There is low lying cerebellar tonsils near the level of the foramen magnum. Finding is stable. Hypert rophic degenerative changes of the spine. Midline structures demonstrate normal morphology. Post con trast images demonstrate no abnormal enhancement. The dural venous sinuses appear patent. The visuali zed sinuses are clear and the globes are intact. IMPRESSION: 1. No evidence of cerebellopontine angle mass or acoustic schwannoma. 2. Degenerative and remote ischemic change.
== END | disposition home or self-care (01) ==
LOC: RADMRIMAIN 09:15
PROVIDERS: ATTEND Otolaryngology
DX: H90.A21 Sensorineural hearing loss, unilateral, right ear, with restricted hearing on the contralateral side (principal); G31.9 Degenerative disease of nervous system, unspecified; I67.82 Cerebral ischemia
CPT/HCPCS: 70553; A9585

== ENCOUNTER → 2023-07-14 | Outpatient (CLI) | payer MEDICARE, OTHER ==
[2023-07-15 02:04] LABS: Chol/HDL Ratio 2.48 Ratio; LDL Cholesterol,Calculated 58.6 mg/dL (0.0-131.0)
== END | disposition home or self-care (01) ==
LOC: LAB 14:07
PROVIDERS: ATTEND Family Medicine
DX: E78.2 Mixed hyperlipidemia (principal)
CPT/HCPCS: 80061

== ENCOUNTER → 2025-02-06 | Outpatient (CLI) | payer MEDICARE, OTHER ==
--- NOTE | 2025-02-06 09:21 | MR ---
EXAMINATION TYPE: MR cervical spine wo/w con DATE OF EXAM: 02/06/2025 8:03 AM COMPARISON: 08/27/2022 CLINICAL INDICATION: Male, 79 years old with history of R22.1 LOCALIZED SWELLING, MASS AND LUMP, NECK , Neck pain, right side and back of neck, headaches, hx surgery., TECHNIQUE: Multiplanar, multisequence images of the cervical spine were obtained before and after adm inistration of 7.5 mL intravenous Gadobutrol gadolinium contrast. IV Contrast: 7.5 cc Gadobutrol FINDINGS: No craniocervical junction unremarkable, predental space widening, or prevertebral soft tissue swelli ng. Postsurgical change of C7-T1 ACDF. Moderate to severe degenerative disc disease elsewhere throughout the cervical spine. Reversal of the normal cervical lordosis. There is a grade 2 anterolisthesis at C2-C3 which appears t o be more pronounced and associated. Facet joint effusion on the right at this level. Additional degenerative grade 1 anterolisthesis C3-C4, C4-C5, C5-C6, C6-C7. Also at T3-T4. Bulging disks impress on the ventral thecal sac and abuts the ventral cord within the upper cervical spine. Disc osteophyte complex and grade 1 anterolisthesis above the fusion at C6-C7 contributes to mild ketan rowing of the spinal canal with abutment of the ventral cord but no compression. Scattered moderate to severe facet arthropathy is present. At C2-C3, this continues to moderate left neural foraminal stenosis. At C3-C4, this results in moderate bilateral neural foraminal stenosis. At C4-C5, changes result in mild right greater than left neural foraminal stenosis. At C5-C6, change results in mild right neuroforaminal stenosis. At C6-C7, changes result in moderate bilateral neuroforaminal stenosis. At C7-T1, changes result in mild bilateral neuroforaminal stenosis. At T1-T2, change results in moderate to severe right and moderate left neuroforaminal stenosis. At T2-T3, changes result in moderate bilateral neural foraminal stenosis. No convincing cord signal abnormality. No abnormal enhancement within the spinal canal. IMPRESSION: 1. Patient status post C7-T1 ACDF. Redemonstrated reversal of the normal cervical lordosis. There is moderate to severe degenerative disc disease and hypertrophic facet/uncovertebral joint arthropathy t hroughout. 2. Degenerative grade 1 anterolisthesis C3 through C7 levels and also at T3-T4. Grade 2 anterolisthes is C2-C3 appears to have increased and shows a right-sided facet joint effusion which is probably eli ctive. 3. Disc osteophyte complex above the fusion at C6-C7 continues to cause a mild spinal canal stenosis with abutment of the ventral cord but no karon cord compression or canal compromise. 4. Variable neural foraminal stenoses as outlined above. [facility], , 02/06/2025 9:19 AM
== END | disposition home or self-care (01) ==
LOC: RADMRIMAIN 07:07
PROVIDERS: ATTEND Psychiatry & Neurology Neurology
DX: M48.02 Spinal stenosis, cervical region (principal); M50.30 Other cervical disc degeneration, unspecified cervical region; M47.812 Spondylosis without myelopathy or radiculopathy, cervical region; M43.12 Spondylolisthesis, cervical region; M25.78 Osteophyte, vertebrae; Z98.1 Arthrodesis status
CPT/HCPCS: 72156; A9585